=== PATIENT | female | born 1950 | race Caucasian/White ===

== ENCOUNTER 2018-05-19 10:51 | Inpatient (IN) ==
[~2018-05-19 10:51] MED LIST: ceFAZolin 1,000 MG, Sodium Chloride IRRigation 1,000 ML IR ONE
[2018-05-19] MEDS ORDERED: Heparin 1,000 UNITS/500 mL 500 ML ONE (11:10)
[2018-05-19] MEDS ORDERED: Ringers Solution, Lactated 1,000 ML IVC SCH (11:15)
[2018-05-19] MEDS ORDERED: diazePAM 5 MG TABLET PO ONE (11:31)
[2018-05-19] MEDS ORDERED: Famotidine 20 MG/2 ML VIAL IVP ONE (11:31)
[2018-05-19] MEDS ORDERED: Acetaminophen IV 1,000 MG/100 ML INFUS..BTL IVPB ONE (11:31)
--- NOTE | 2018-05-19 11:35 | Anesthesia Evaluation PreOp ---
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: Other (Migraine Lumbar Radiculopathy) Other Medical History: Denies Any Significant HX Anesthesia History: No Prior Anesthetic Complications : No Alcohol Use: none Drug use: none Medications and Allergies Acetaminophen/Butalbital/Caffe [Fioricet] 50 mg PO Q4H 05/08/18 [History] Aspirin [Lo-Dose Aspirin EC] 81 mg PO DAILY 05/08/18 [History] Atenolol [Tenormin] 25 mg PO DAILY 05/08/18 [History] Atorvastatin Calcium [Lipitor] 80 mg PO DAILY 05/08/18 [History] Cholecalciferol (Vitamin D3) [Vitamin D3] 10,000 unit PO DAILY 05/08/18 [History] Citalopram Hydrobromide [Celexa] 20 mg PO DAILY 05/08/18 [History] Hydrochlorothiazide [Microzide] 12.5 mg PO DAILY 05/08/18 [History] Lomotil 2.5 mg/0.025 mg 2.5 mg PO PRN PRN 05/08/18 [History] Multivit-Min/Iron/Folic Acid/K [Adults Multivitamin Caplet] 1 each PO DAILY 05/08/18 [History] OLANZapine [Zyprexa] 2.5 mg PO DAILY 05/08/18 [History] Allergy/AdvReac Type Severity Reaction Status Date / Time azithromycin [From Zithromax] AdvReac Nausea Verified 11/01/16 08:13 NSAIDS (Non-Steroidal AdvReac Nausea Verified 11/01/16 08:13 Anti-Inflamma sumatriptan AdvReac Nausea Verified 11/01/16 08:13 zolmitriptan [From Zomig] AdvReac Nausea Verified 11/01/16 08:13 - Meds/Allergy Pre-op Review Medications Reviewed: Yes Allergies Reviewed: Yes Beta Blockers on Current Med List: No Anesthesia Results - Labs Laboratory Tests 04/30/18 04/30/18 04/30/18 11:36 11:36 11:36 Hgb 14.7 Hct 43.5 Plt Count 238 PT 11.9 INR 1.1 APTT 31.7 Sodium 140 Potassium 3.4 L BUN 12 Creatinine 0.74 - Imaging EKG: report reviewed (SR Arrhythmia) Anesthesia Exam O2 Sat Height 1.68 m Height 1.68 m Weight 86.183 kg Weight 86.183 kg O2 Sat by Pulse Oximetry 95 O2 Sat by Pulse Oximetry 95 Vital Signs Temp Pulse Resp BP Pulse Ox 98.3 F 64 18 159/82 95 05/19/18 11:09 05/19/18 11:09 05/19/18 11:09 05/19/18 11:09 05/19/18 11:09 Height: 5'6 Weight: 190 lbs NPO (# of Hours): MN Pain Scale: 0 - HEENT Pupil (Motor): Pupils equal, EOMI Mallampati: II Teeth: Prosthesis Denture Type: Upper: Complete Oral Opening: Greater than 3 - ECOLOGIST TECHNICIAN LOC: Oriented ECOLOGIST TECHNICIAN Motor: Normal RUE, Normal LUE, Normal RLE, Normal LLE, Normal Face ECOLOGIST TECHNICIAN Sensory: Normal: RUE, LUE, RLE, LLE, Face - Cardiac Rhythm: Regular Murmur: None JVD: No Carotid Bruit: No - Pulmonary Breath Sounds: bilateral Clear Respiratory Effort: Symmetrical Anesthesia Assess/Plan ASA Score: 3 (HTN Carotid Stenosis Smoker) Level of consciousness: Cooperative Anesthetic Plan: General Autologous Blood: No Monitoring Plan: Standard Monitors, A-Line Recovery Plan: PACU (Discussed GA, agrees to proceed)
[2018-05-19] MEDS ORDERED: Albuterol 2.5 MG/3 ML NEBULIZER IH ONE (11:37)
[2018-05-19] MEDS ORDERED: Albuterol 2.5 MG/3 ML NEBULIZER ONE (11:40)
[2018-05-19] MEDS ORDERED: CeFAZolin Syr 2,000MG/20 ML 2,000 MG/20 ML SYRINGE IVPB ONE (11:54)
[2018-05-19] MEDS ORDERED: *HR* Midazolam HCl 2 MG/2 ML VIAL ONE ×2 (12:08→14:01)
[2018-05-19] MEDS ORDERED: *HR* Rocuronium Bromide 50 MG/5 ML VIAL ONE (12:08)
[2018-05-19] MEDS ORDERED: Lidocaine -MPF 2% 2 ML VIAL ONE (12:08)
[2018-05-19] MEDS ORDERED: Lidocaine -MPF 4% 5 ML AMPUL ONE (12:08)
[2018-05-19] MEDS ORDERED: *HR* FentaNYL (PF) 100 MCG/2 ML VIAL ONE (12:08)
[2018-05-19] MEDS ORDERED: *HR* Propofol 200 MG/20 ML VIAL IVP ONE (12:09)
[2018-05-19] MEDS ORDERED: *HR* Remifentanil 2 MG VIAL IVP ONE (13:14)
[2018-05-19] MEDS ORDERED: NiCARdipine 2.5 MG/10 ML Syringe IVPB ONE (13:25)
[2018-05-19] MEDS ORDERED: Heparin 1,000 UNITS/500 mL 1,000 ML ONE (13:34)
[2018-05-19] MEDS ORDERED: Lidocaine 1% 20 ML MDV ONE (13:34)
--- NOTE | 2018-05-19 13:35 | History & Physical Report ---
Date of Encounter: 05/19/18 Time of Encounter: 13:15 24 Hour HP Update - Instructions Instructions: If the History and Physical is less than 30 days old and was completed prior to A.M. admission and or procedure and has NOT been updated on calendar day of procedure please complete this update prior to performing procedure. - Update Patient reports changes in Medical Condition: No Changes in examination, assessment, or condition: No Changes in Medication: No Preop tests/diagnostics Reviewed: Yes Surgery Remains Indicated: Yes Consent for Planned Operative Procedure(s) Verified: Yes - Pre-Operative Checklist Preoperative Checklist Indicated: Yes Prophylactic Antibiotic Ordered: Yes Home Medications Include Beta Han: Yes Beta Han Taken Today (Day of Surgery): Yes Beta Han Taken Yesterday (Day Prior to Surgery): Yes Is VTE Prophylaxis Indicated?: Yes
--- NOTE | 2018-05-19 13:59 | Anesthesia Procedures ---
Date of Encounter: 05/19/18 Time of Encounter: 11:00 Procedures: Anesthesia - Arterial Line Consent obtained: written consent Time out performed: Yes Sedation: Versed (mg): 2 Supplemental Oxygen via Nasal Cannula (L/min): 2 Local Anesthetic: Lidocaine 1% Amount of Anesthetic used (mls): 1 Size (Gauge): 20 Length (inches): 1 3/4 Technique Used: sterile prep, guide wire technique Post-Procedure: line taped into place Patient tolerated procedure: no complications Complications: none Site: Radial L Vitals: Vital Signs/O2 Sat/Glucose, Most Current Temp Pulse Resp BP Pulse Ox 05/19/18 11:32 98.3 F 64 18 159/82 95 05/19/18 11:09 98.3 F 64 18 159/82 95
[2018-05-19] MEDS ORDERED: Dexamethasone 4 MG/ML VIAL ONE (14:45)
[2018-05-19] MEDS ORDERED: Ondansetron 4 MG/2 ML VIAL ONE (14:45)
[2018-05-19] MEDS ORDERED: *HR* Heparin 5,000 UNIT/ML VIAL ONE (16:09)
[2018-05-19] MEDS ORDERED: *HR* Remifentanil 1 MG VIAL IVP ONE (16:16)
--- NOTE | 2018-05-19 16:51 | Operative Note ---
Date of procedure: 05/19/18 Pre-op diagnosis: right carotid stenosis Post-op diagnosis: same Procedure: right carotid endarterectomy with bovine patch angioplasty Complications: 0 Anesthesia: GETA Surgeon: Lawrence Mark Was there an photo studio assistant present: No Estimated blood loss (cc): 200 Specimen: 0 Condition: stable Disposition: PACU Procedure in Detail: History Bee Velazquez is a 67-year-old white female with multiple vascular risk factors. She was found to have dizziness and abnormal carotid duplex scan. This then led to a carotid artery angiogram. This demonstrated significant calcific changes in the bulbar area bilaterally but in particular on the right side she had a hemodynamically significant right internal carotid artery stenosis and a right external carotid artery occlusion. The patient comes the operating room for correction of the right-sided lesions. Procedure After informed consent was obtained patient was taken to the operating room. General endotracheal anesthesia was established under arterial line pressure monitoring. The right neck was sterilely prepped and draped. A timeout protocol was observed. An oblique incision was then made on the right neck. Dissection was carried down to the carotid sheath. The carotid sheath was then opened and the contents of the carotid sheath were identified. The vessels were found to be rotated with the external carotid artery rotated into an anterior position. This led to further dissection and with this accomplished the area was able to be returned to a more normal orientation in order to perform the operation. Controls obtained of the carotid vessel selectively. 5000 units of heparin were administered intravenously. After 3 minute delay the vessels were clamped with the internal carotid artery clamped first. Using an 11 blade knife and Collazo scissors the artery was opened beginning at the distal aspect of the common carotid and extending up on into the internal carotid artery. An 8 Haitian shunt was then inserted atraumatically. Patency of the shunt was confirmed by the use of intraoperative Doppler. Inspection of the plaque revealed a very dense calcific J-shaped plaque that extended from the internal carotid artery into the bulb and up into the external carotid artery orifice which was occluded. There were no findings of intraluminal thrombus. The endarterectomy was then begun at the distal aspect of the common carotid artery. The dissection plane was established. The dissection was then carried circumferentially. Attention was paid to endarterectomize completely the orifice of the external carotid artery so that this occluded vessel would now be opened. The arteriotomy was extended on the internal carotid artery in order to remove all plaque. No tacking sutures were necessary. The bed of the vessel was then inspected for any residual debris. The artery was then closed using a bovine pericardial patch angioplasty over the arterial incision. Leaving a small space open on the suture line the shunt was clamped and divided and removed. The final few sutures were then placed. The internal was allowed to backbleed and was reclamped. The external and common were opened and finally the internal was reopened. The patient tolerated this well. She had no yuki-procedural hemodynamic distress. The wounds were then irrigated. Excellent Doppler signals in pulses were identified throughout the carotid system. Hemostasis was achieved. A superficial cervical block using Marcaine was performed. The wound was then closed in layers using absorbable suture. A dry sterile dressing was applied. The patient was awoken from anesthesia. She was found to be neuro logically intact. She was extubated. She was taken to the recovery room in stable condition.
[2018-05-19] MEDS ORDERED: Ondansetron 4 MG/2 ML VIAL IVP ONE (17:04)
[2018-05-19] MEDS ORDERED: *HR* Promethazine 25 MG/ML VIAL IVP PRN (17:04)
[2018-05-19] MEDS ORDERED: *HR* Labetalol 20 MG/4 ML SYRINGE IVP PRN (17:04)
[2018-05-19] MEDS ORDERED: *HR* OxyCODONE Immed Rel 5 MG TABLET PO PRN ×2 (17:04→18:14)
[2018-05-19] MEDS ORDERED: *HR* Meperidine 25 MG/ML SYRINGE IVP PRN (17:04)
--- NOTE | 2018-05-19 17:47 | Anesthesia Evaluation Post Op ---
Date of Encounter: 05/19/18 Time of Encounter: 17:46 - Vital Signs Vital Signs: Vital Signs/O2 Sat, Most Current Temp Pulse Resp BP Pulse Ox 98.6 F 65 18 147/58 97 05/19/18 17:35 05/19/18 17:35 05/19/18 17:35 05/19/18 17:35 05/19/18 17:35 - Lungs Lungs: Clear Ascult./Percussion - Airway Airway: Non-obstructed - Cardiovascular Regular Rate - Mental Status Mental Status: Alert & Oriented, Answers Appropriately - Pain Pain Scale: 3 Pain Scale used: Numeric (1 - 10) - Nausea Vomiting Nausea Vomiting: Not Present - Hydration Hydration: NPO, Ugarte catheter - Discharge PostOp Status: Transfer Patient to floor
[2018-05-19] MEDS ORDERED: Naloxone 0.4 MG/ML INJ IVP PRN (18:14)
[2018-05-19] MEDS ORDERED: Diphenoxylate/Atropine 1 TAB TABLET PO PRN (18:14)
[2018-05-19] MEDS ORDERED: Acetaminophen/Butalbital/CaffeineTABLET PO PRN (18:14)
[2018-05-19] MEDS ORDERED: Acetaminophen 325 MG TABLET PO PRN (18:14)
[2018-05-19] MEDS ORDERED: Ondansetron 4 MG/2 ML VIAL IVP PRN (18:14)
[2018-05-19] MEDS: *HR* HYDROcodone/Acet 5/325 mg TABLET PO PRN (19:56)
[2018-05-19] MEDS ORDERED: OLANZapine 5 MG TAB.RAPDIS PO SCH (21:00)
[2018-05-20] MEDS: *HR* HYDROcodone/Acet 5/325 mg TABLET PO PRN ×2 (05:05→11:45)
[2018-05-20 05:38] LABS: Basophils % 0.1 %; Eosinophils % 0.1 %; Hematocrit 36.2 % (35.3-44.9); Immature Granulocytes % 0.4 % (0-4); Lymphocytes # 1.3 K/mcL (0.6-4.6); Lymphocytes % 15.9 %; Mean Corpuscular HGB Conc 33.1 g/dL (31.6-35.5); Mean Corpuscular Hemoglobin 29.9 pg (28.0-33.3); Mean Corpuscular Volume 90.3 fL (83.0-100.0); Mean Platelet Volume 9.5 fL (9.4-12.4); Monocytes # 0.5 K/mcL (0.0-1.3); Monocytes % 5.6 %; Neutrophils # 6.5 K/mcL (1.6-8.9); Platelet Count 180 K/mcL (140-400); Red Blood Count 4.01 M/mcL (3.82-4.97); Red Cell Distribution Width 13.3 % (11.5-14.5); Segmented Neutrophils % 77.9 %
[2018-05-20 05:56] LABS: BUN/Creatinine Ratio 23 (6-26); Blood Urea Nitrogen 14 mg/dL (8-23); Calcium 8.5 mg/dL (8.6-10.3); Carbon Dioxide 27 mEq/L (23-29); Chloride 107 mEq/L (98-107); Glucose 127 mg/dL (70-105); Osmolality,Calculated 292 (280-300); Sodium 140 mEq/L (136-145); eGFR For Non-African Americans > 60 (> 60)
--- NOTE | 2018-05-20 08:10 | Discharge Summary ---
Orders not resulted at time of discharge: Pending orders 05/18/18 14:39 Red Blood Cells [BBK] Routine Date of Encounter: 05/20/18 Time of Encounter: 08:08 - Discharge Diagnosis (1) Carotid stenosis, bilateral Priority: Primary Status: Chronic (2) Hypertension Priority: Secondary Status: Chronic Qualifiers: Hypertension type: essential hypertension Qualified Code(s): I10 - Essential (primary) hypertension (3) Hyperlipidemia Priority: Secondary Status: Chronic Qualifiers: Hyperlipidemia type: unspecified Qualified Code(s): E78.5 - Hyperlipidemia, unspecified - Hospital Course Hospital course: Ms. Velazquez is a 67 year old female With a history of migraine headaches. She had an abnormal carotid duplex scan. Serial scanning showed worsening of her carotid stenosis and she went on to have a carotid artery angiogram. This demonstrated a high-grade calcific stenosis of the right internal carotid artery and occlusion of the right external carotid artery. The patient underwent a right carotid endarterectomy yesterday under general endotracheal anesthesia. The patient tolerated the procedure well. She had no periprocedural complications. She was neurologically intact. She was able to ambulate and was stable postoperatively and she did have mild hypertension. The patient was felt fit for discharge on the afternoon of postoperative day #1. Wound care, medications, and activities were discussed with the patient prior to discharge. All questions were answered. - Time Spent with Patient Total time spent providing and/or coordinating discharge services: - Discharge Medications Prescriptions: RX: HYDROcodone/Acet 5/325 mg [[place] 5-325 mg] 1 tab PO Q6HR PRN 7 Days #7 tablet PRN Reason: Moderate Pain Home Medications: RX: Acetaminophen/Butalbital/Caffe [Fioricet] 1 tab PO Q4H PRN 05/08/18 [History] RX: Aspirin [Lo-Dose Aspirin EC] 81 mg PO DAILY 05/08/18 [History] RX: Atenolol [Tenormin] 25 mg PO DAILY 05/08/18 [History] RX: Atorvastatin Calcium [Lipitor] 80 mg PO HS 05/08/18 [History] RX: Cholecalciferol (Vitamin D3) [Vitamin D3] 10,000 unit PO DAILY 05/08/18 [History] RX: Citalopram Hydrobromide [Celexa] 40 mg PO DAILY 05/08/18 [History] RX: Diphenoxylate/Atropine [Lomotil 2.5 mg/0.025 mg] 1 tab PO QID PRN #0 05/08/18 [History] RX: Hydrochlorothiazide [Microzide] 12.5 mg PO DAILY 05/08/18 [History] RX: Multivit-Min/Iron/Folic Acid/K [Adults Multivitamin Caplet] 1 tab PO DAILY 05/08/18 [History] RX: Fluticasone Propionate Nasal [Flonase] 1 spr NS DAILY 05/19/18 [History] RX: OLANZapine [Zyprexa] 5 mg PO HS 05/19/18 [History] RX: Potassium 99 mg PO DAILY 05/19/18 [History] RX: Ramelteon [Rozerem] 8 mg PO HS PRN 05/19/18 [History] RX: HYDROcodone/Acet 5/325 mg [[place] 5-325 mg] 1 tab PO Q6HR PRN 7 Days #7 tablet 05/20/18 [Rx] Allergies/Adverse Reactions: Allergy/AdvReac Type Severity Reaction Status Date / Time azithromycin [From Zithromax] AdvReac Nausea Verified 11/01/16 08:13 NSAIDS (Non-Steroidal AdvReac Nausea Verified 11/01/16 08:13 Anti-Inflamma sumatriptan AdvReac Nausea Verified 11/01/16 08:13 zolmitriptan [From Zomig] AdvReac Nausea Verified 11/01/16 08:13 Date of admission: 05/19/18 18:07 Primary care physician: Sharifa Salazar MD Consults: None Procedure(s) Performed: Right carotid endarterectomy with bovine patch angioplasty Discharging clinician: Lawrence Mark Anticipated date of discharge: 05/20/18 Exam Vital Signs, Last 4 Hours Temp Pulse Resp BP Pulse Ox 05/20/18 07:21 98.2 F 49 17 158/77 95 05/20/18 04:36 98.0 F 53 18 156/64 95 General: Present: Conversant, No Apparent Distress, Well developed, Well nourished HEENT: Present: Trachea midline Neck: Absent: JVD Cardiac: Present: Reg Rate and Rhythm, Normal S1 and S2, No Murmur Lungs: Present: Normal Breath Sounds Neuro: Present: Alert and responsive, No focal deficits noted, Cranial nerves grossly intact, Motor nerves grossly intact, Sensory nerves grossly intact Vascular: Present: Surgical incisions (Right neck incision is clean and dry) Skin: Present: No rashes noted on visualized skin - Patient Status Disposition: Home, Self-Care Condition: Good Functional capacity at discharge: independent ambulation Overall status at discharge: patient is progressing back to baseline - Discharge Instructions Follow Up With: Joya Mancia CNP [Advanced Practice Nurse] - 05/27/18 9:30 am Lawrence Mark MD [Partnered Physician] - 06/10/18 9:45 am Additional Instructions: Use ice pack on the right neck for 48 hours at home Use incentive spirometer 10 times an hour while awake for the next 2 weeks then discard Resume usual home medications No lifting greater than 10 pounds. No manual labor. No driving. Patient may ambulate inside and outside. Patient may use stairs as tolerated. - Diet and Activity Activity: increase activity as tolerated Diet: advance to your usual diet
[2018-05-20] MEDS ORDERED: Cholecalciferol (D-3) 1,000 UNIT TABLET PO SCH (09:00)
[2018-05-20] MEDS ORDERED: Aspirin Enteric Coated 81 MG Tablet PO SCH (09:00)
[2018-05-20] MEDS ORDERED: Potassium [Potassium] 99 MG PO SCH (09:00)
[2018-05-20] MEDS ORDERED: hydroCHLOROthiazide 25 MG TABLET PO SCH (09:00)
[2018-05-20] MEDS ORDERED: Multivit/Ca/Min/Fe/FA 1 TAB TABLET PO SCH (09:00)
[2018-05-20] MEDS ORDERED: Fluticasone Propionate Nasal 50 MCG/SPRAY BOTTLE NS SCH (09:00)
[2018-05-20 17:02] VITALS: BP 174/74
== END 2018-05-20 17:30 | disposition home or self-care (01) | DRG 39 ==
LOC: SAMDAY 10:51 → 2NNU 18:07
PROVIDERS: ADMIT Surgery Vascular Surgery; ATTEND Surgery Vascular Surgery